=== PATIENT | male | born 1960 | race Caucasian/White ===

== ENCOUNTER → 2019-08-23 | Day surgery (SDC) | payer BC ==
[2019-08-22 16:40] VITALS: BMI 27.6
[~2019-08-23] MED LIST: MIDAZOLAM HCL 2 MG/2 ML SINGLE DOSE VIAL ONE; ceFAZolin SODIUM 1 GM VIAL IVPB ONE; fentaNYL CITRATE 250 MCG/5 ML VIAL ONE
[2019-08-23 12:22] VITALS: PULSE 58
--- NOTE | 2019-08-23 14:56 | OP ---
Operative Note - Note: Operative Date: 08/23/19 Pre-Operative Diagnosis: Left Renal Calculus Operation: Left ESWL Findings: 3 mm Calc left renal lower pole Post-Operative Diagnosis: Same as Pre-op Surgeon: Manisha Bay Anesthesia: General Operative Report Dictated: Yes
[2019-08-23 15:07] VITALS: BP 125/70; TEMP 98.5
--- NOTE | 2019-08-30 16:31 | OP ---
DATE OF OPERATION: 08/23/2019 SURGEON: Manisha Bay MD ANESTHESIA: General. PREOPERATIVE DIAGNOSIS: Left renal calculus. POSTOPERATIVE DIAGNOSIS: Left renal calculus. PROCEDURE: Extracorporeal shock-wave lithotripsy, left side. FINDINGS: A 3-mm calculus noted within the renal pelvis. The stone was quite mobile. Was moving around. DESCRIPTION OF PROCEDURE: Patient in supine position with the left side up was prepped and draped in the usual manner. The stone was identified by sonography, and ESWL was performed. A total of 2500 shocks were given. Patient tolerated the procedure well. At the end of the procedure, the left kidney was found to be free of any calculus material. Patient left the operating room in a satisfactory condition. MANISHA BAY M.D. [id number]
== END | disposition home or self-care (01) ==
LOC: JASU-SURG 11:19
PROVIDERS: ATTEND Urology
PROC: 0TF4XZZ Fragmentation in Left Kidney Pelvis, External Approach (ICD-10-PCS; principal; 2019-08-23 13:30)
DX: N20.0 Calculus of kidney (principal)

== ENCOUNTER 2022-04-18 04:01 | Day surgery (SDC) | payer BC ==
[2022-04-17 11:45] VITALS: BMI 25.4
[2022-04-18] MEDS ORDERED: PROPOFOL 20 ML ONE (10:44)
[2022-04-18] MEDS ORDERED: MIDAZOLAM HCL 2 MG/2 ML SINGLE DOSE VIAL ONE (10:45)
[2022-04-18] MEDS ORDERED: BUPIVACAINE HCL/PF 0.25% (2.5MG/ML) 10 ML VIAL ONE (10:48)
[2022-04-18] MEDS ORDERED: BUPIVACAINE HCL/PF 0.5% (5MG/ML) 10 ML VIAL ONE (10:48)
[2022-04-18] MEDS ORDERED: DEXAMETHASONE SOD PHOSPHATE 10 MG/1 ML VIAL ONE (10:49)
[2022-04-18] MEDS ORDERED: ceFAZolin SODIUM 1 GM VIAL ONE (11:35)
[2022-04-18] MEDS ORDERED: ceFAZolin SODIUM 1 GM VIAL IVPB ONE (11:40)
[2022-04-18] MEDS ORDERED: ONDANSETRON 4 MG/2 ML VIAL IVPUSH PRN (14:33)
[2022-04-18] MEDS ORDERED: oxyCODONE HCL 5 MG TABLET PO PRN (14:33)
[2022-04-18] MEDS ORDERED: LACTATED RINGERS SOLUTION 1,000 ML IV SCH (14:45)
[2022-04-18 15:55] VITALS: RESP 18; TEMP 97.8
[2022-04-18 16:18] VITALS: BP 112/57
[2022-04-18 16:41] VITALS: PULSE 66
== END 2022-04-18 17:05 | disposition home or self-care (01) ==
LOC: JASU-SURG 04:01
PROVIDERS: ATTEND Podiatrist Foot & Ankle Surgery
PROC: 0QBM0ZZ Excision of Left Tarsal, Open Approach (ICD-10-PCS; 2022-04-18)
PROC: 0LUP07Z Supplement Left Lower Leg Tendon with Autologous Tissue Substitute, Open Approach (ICD-10-PCS; principal; 2022-04-18 11:00)
PROC: 0LXP0ZZ Transfer Left Lower Leg Tendon, Open Approach (ICD-10-PCS; 2022-04-18 11:00)
DX: S86.012A Strain of left Achilles tendon, initial encounter (principal); M77.32 Calcaneal spur, left foot; X58.XXXA Exposure to other specified factors, initial encounter; Y93.9 Activity, unspecified; Y92.9 Unspecified place or not applicable; Y99.9 Unspecified external cause status
CPT/HCPCS: 27652; 27691; 28120; C1713; 76000-TC-FY; 88304-TC; 94760; 97116-GP; J1100